=== PATIENT | female | born 1985 | race Caucasian/White ===

== ENCOUNTER 2016-11-07 14:48 | Emergency (ER) | payer MEDICAID ==
[2016-11-07 17:34] LABS: BASOPHIL % 0.4 % (0-2); PLATELET COUNT 237 x10^3mcL (130-400); RED CELL DISTRIBUTION WIDTH 13.1 % (11.5-14.5)
[2016-11-07 17:44] LABS: CALCIUM 8.5 mg/dL (8.5-10.1); CARBON DIOXIDE 28.4 mmol/L (21-32); CHLORIDE SERUM 105 mmol/L (98-107); CREATININE SERUM 0.8 mg/dL (0.6-1.0); GFR1 > 60 mL/min; GLUCOSE SERUM 90 mg/dL (74-106); POTASSIUM SERUM 3.9 mmol/L (3.5-5.1); SODIUM SERUM 137 mmol/L (136-145)
[2016-11-07 17:48] LABS: ALKALINE PHOSPHATASE 60 U/L (46-116); ALT/SGPT 58 U/L (14-59); AMYLASE 29 U/L (25-115); AST/SGOT 23 U/L (15-37); BILIRUBIN TOTAL 0.2 mg/dL (0.20-1.00); LIPASE 119 IU/L (73-393); TOTAL PROTEIN, SERUM 7.2 g/dL (6.4-8.2)
[2016-11-07 21:14] VITALS: BP 141/93
== END 2016-11-07 21:14 | disposition home or self-care (01) ==
LOC: ED 14:48
PROVIDERS: Emergency Medicine
DX: K80.70 Calculus of gallbladder and bile duct without cholecystitis without obstruction (principal)
CPT/HCPCS: 83880; C9113; J2270; J2405; J7030; Q0092

== ENCOUNTER 2017-08-20 00:18 | Emergency (ER) | payer MEDICAID ==
[~2017-08-20] VITALS: Ht 167.6 cm; Wt 98.9 kg
[2017-08-20 00:33] VITALS: Ht 167.6 cm; Wt 98.9 kg
[2017-08-20 05:50] VITALS: BP 141/94
== END 2017-08-20 05:50 | disposition home or self-care (01) ==
LOC: ED 00:18
DX: J02.9 Acute pharyngitis, unspecified (principal); J06.9 Acute upper respiratory infection, unspecified
CPT/HCPCS: 87804; J1100

== ENCOUNTER 2017-11-18 00:37 | Emergency (ER) | payer MEDICAID ==
[2017-11-18 00:41] VITALS: Ht 182.9 cm
[2017-11-18 02:32] LABS: BASOPHIL % 0.5 % (0-2); PLATELET COUNT 275 x10^3mcL (130-400)
[2017-11-18 02:41] LABS: CALCIUM 8.3 mg/dL (8.5-10.1); CARBON DIOXIDE 25.5 mmol/L (21-32); CHLORIDE SERUM 106 mmol/L (98-107); CREATININE SERUM 0.9 mg/dL (0.6-1.0); GFR1 > 60 mL/min; GLUCOSE SERUM 102 mg/dL (74-106); POTASSIUM SERUM 3.4 mmol/L (3.5-5.1); SODIUM SERUM 139 mmol/L (136-145)
[2017-11-18 02:46] LABS: ALKALINE PHOSPHATASE 69 U/L (46-116); ALT/SGPT 28 U/L (14-59); AST/SGOT 11 U/L (15-37); BILIRUBIN TOTAL 0.19 mg/dL (0.20-1.00); LIPASE 132 IU/L (73-393); TOTAL PROTEIN, SERUM 7.3 g/dL (6.4-8.2)
[2017-11-18 04:01] VITALS: BP 132/79
== END 2017-11-18 04:01 | disposition home or self-care (01) ==
LOC: ED 00:37
PROVIDERS: Emergency Medicine
DX: K80.20 Calculus of gallbladder without cholecystitis without obstruction (principal); N39.0 Urinary tract infection, site not specified
CPT/HCPCS: 36415; J1885; Q0162

== ENCOUNTER 2018-03-21 17:07 | Emergency (ER) | payer MEDICAID ==
[~2018-03-21] VITALS: Ht 167.6 cm; Wt 101.2 kg
[2018-03-21 17:27] VITALS: Ht 167.6 cm; Wt 101.2 kg
[2018-03-21 17:53] LABS: BASOPHIL % 0.4 % (0-2); PLATELET COUNT 250 x10^3mcL (130-400); RED CELL DISTRIBUTION WIDTH 12.9 % (11.5-14.5)
[2018-03-21 17:56] LABS: CALCIUM 8.4 mg/dL (8.5-10.1); CARBON DIOXIDE 28.2 mmol/L (21-32); CHLORIDE SERUM 105 mmol/L (98-107); CREATININE SERUM 0.9 mg/dL (0.6-1.0); GFR1 > 60 mL/min; GLUCOSE SERUM 99 mg/dL (74-106); POTASSIUM SERUM 3.6 mmol/L (3.5-5.1); SODIUM SERUM 140 mmol/L (136-145)
[2018-03-21 18:01] LABS: ALBUMIN 3.8 g/dL (3.4-5.0); ALKALINE PHOSPHATASE 59 U/L (46-116); ALT/SGPT 27 U/L (14-59); AST/SGOT 16 U/L (15-37); BILIRUBIN TOTAL 0.2 mg/dL (0.20-1.00); TOTAL PROTEIN, SERUM 7.3 g/dL (6.4-8.2)
[2018-03-21 20:33] VITALS: BP 138/80
== END 2018-03-21 20:33 | disposition home or self-care (01) ==
LOC: ED 17:07
PROVIDERS: Emergency Medicine
DX: R51 Headache (principal); N39.0 Urinary tract infection, site not specified
CPT/HCPCS: J0696; J1885; J2270; J2405; J7030

== ENCOUNTER 2019-02-16 01:16 | Emergency (ER) | payer MEDICAID ==
[~2019-02-16] VITALS: Ht 167.6 cm; Wt 81.6 kg
[2019-02-16 01:22] VITALS: Ht 167.6 cm; Wt 81.6 kg
[2019-02-16 02:54] VITALS: BP 122/75
== END 2019-02-16 02:54 | disposition home or self-care (01) ==
LOC: ED 01:16
DX: J20.9 Acute bronchitis, unspecified (principal)
CPT/HCPCS: Q0092

== ENCOUNTER 2019-03-27 18:29 | Emergency (ER) | payer MEDICAID ==
[~2019-03-27] VITALS: Ht 167.6 cm; Wt 99.8 kg
[2019-03-27 18:41] VITALS: Ht 167.6 cm; Wt 99.8 kg
[2019-03-27 21:48] VITALS: BP 113/74
== END 2019-03-27 21:48 | disposition home or self-care (01) ==
LOC: ED 18:29
DX: S29.012A Strain of muscle and tendon of back wall of thorax, initial encounter (principal); M54.2 Cervicalgia; X58.XXXA Exposure to other specified factors, initial encounter; Y93.89 Activity, other specified; Y92.89 Other specified places as the place of occurrence of the external cause; Y99.8 Other external cause status
CPT/HCPCS: 72072; J1885